=== PATIENT | male | born 1965 | race Caucasian/White ===

== ENCOUNTER 2019-05-07 20:39 | Observation (INO) ==
[2019-05-07] MEDS ORDERED: NITROGLYCERIN 2% OINTMENT 30GM TUBE EXT STA (20:51)
[2019-05-07] MEDS ORDERED: ASPIRIN CHEW 324 MG PO STA (20:51)
[2019-05-07 21:05] LABS: Basophils # (auto) 0.06 K/uL (0-0.2); Basophils % (auto) 0.6 %; Eosinophils # (auto) 0.35 K/uL (0-0.5); Eosinophils % (auto) 3.7 %; Hematocrit (blood only) 46.4 % (42-52); Hemoglobin 16.6 g/dL (14.0-18.0); Immature Granulocytes # (auto) 0.02 K/uL (0.00-0.02); Immature Granulocytes % (auto) 0.2 %; Lymphocytes # (auto) 2.59 K/uL (1.2-3.4); Lymphocytes % (auto) 27.3 %; Mean Corpuscular Hemoglobin 28.9 pg (25-34); Mean Corpuscular Hgb Conc 35.8 g/dL (32-36); Mean Corpuscular Volume 80.7 fL (80-100); Mean Platelet Volume 10.8 fL (7.4-10.4); Monocytes % (auto) 8.4 %; Neutrophils # (auto) 5.65 K/uL (1.4-6.5); Neutrophils % (auto) 59.8 %; Platelet Count 244 K/uL (130-400); RDW Coefficient of Variation 13.9 % (11.5-14.5); RDW Standard Deviation 40.5 fL (36.4-46.3); Red Blood Count 5.75 M/uL (4.7-6.1); White Blood Count 9.47 K/uL (4.8-10.8)
--- NOTE | 2019-05-07 21:06 | XRay Report ---
XR chest 1V portable HISTORY: 53 years-old Male Chest Pain acute atypical chest pain COMPARISON: CT soft tissue neck 09/02/2012 TECHNIQUE: Portable AP view of the chest FINDINGS: Cardiac mediastinal and hilar silhouettes are within normal limits. Azygos lobe and fissure. No pneum othorax, pleural effusion, focal airspace consolidation or overt pulmonary edema. Degenerative change s of the shoulders and spine. IMPRESSION: No acute process. The above report was generated using voice recognition software. It may contain grammatical, syntax o r spelling errors. Electronically signed by: Edgar Miranda M.D. 05/07/2019 9:04 PM
[2019-05-07 21:21] LABS: Alanine Aminotransferase 51 U/L (12-78); Albumin Level 3.8 gm/dl (3.4-5.0); Aspartate Aminotransferase 18 U/L (15-37); BUN Creatinine Ratio 11.8 (10-20); Blood Urea Nitrogen 13 mg/dl (7-18); Calcium 8.6 mg/dl (8.5-10.1); Carbon Dioxide 31 mmol/L (21-32); Chloride 106 mmol/L (98-107); Creatinine Clr Calc Pharmacy 93.8 ml/min; Est GFR (African American) 87.4; Est GFR (Non-African American) 75.4; Glucose 105 mg/dl (70-99); Lipase 171 U/L (73-393); Magnesium 2.2 mg/dl (1.8-2.4); Potassium 3.6 mmol/L (3.5-5.1); Sodium 141 mmol/L (136-145)
[2019-05-07 21:22] LABS: Partial Thromboplastin Time 25.9 Seconds (21.0-31.0); Prothrombin Time 10.6 Seconds (9.0-12.0)
[2019-05-07 21:26] LABS: Albumin Globulin Ratio 1.2 (0.9-2); Alkaline Phosphatase 100 U/L (45-117); Bilirubin,Total 0.6 mg/dl (0.2-1); Globulin 3.2 gm/dl (2.5-4.0); Troponin I < 0.015 ng/ml (0-0.045)
--- NOTE | 2019-05-07 22:07 | Emergency Department Note ---
Entered by Darnell Arita acting as a scribe for History of Present Illness General Chief complaint: Chest Pain Stated complaint: CHEST PAIN Time Seen by Provider: 05/07/19 20:44 Source: patient History of Present Illness Provider complaint: Chest pain Onset (ago): hour(s) 7 Location: chest Radiation: extremity (Left arm) Pain Consistency: + colicky Maximum Pain Intensity: 3 Current Pain Intensity: 5 Quality: + other (Tightness) Relieved By: + none Exacerbated By: + none Associated symptoms: no diaphoresis, no nausea/vomiting and no shortness of breath The patient is a 53 year old male who presents to the Emergency Room with compla ints of colicky chest tightness that started this afternoon around 14:00, about 7 hours ago. The patient states he was doing activities around the house when the pain started but he was active this morning, prior to the onset of his chest pain. At this time, the patient notes he felt abnormally tired and had some pain in his left arm. He also felt dizzy, but did not lose consciousness. The patient rates the pain as a 5/10 at its worst and notes nothing makes it better or worse. The patient mentioned that he does see a assignment clerk for having an elevated WBC and RBC levels but he has not scheduled his appointment to have blood removed. The patient did take his blood pressure today and it was 171/117 with a pulse of 90. The patient notes that an hour prior to arrival he took 1 baby Aspirin. The patient denies any shortness of breath, diaphoresis, or nausea as well as any history of diabetes, hyperlipidemia, or tobacco use. The patient does have a family history of CAD and CA. Home Medications Home Medications Medication Instructions Recorded Confirmed Type amlodipine 5 mg PO QAM 05/07/19 05/07/19 History aspirin 81 mg PO QAM 05/07/19 05/07/19 History multivitamin 1 tab PO QAM 05/07/19 05/07/19 History Allergies Allergy/AdvReac Type Severity Reaction Status Date / Time [id number] Allergy Unknown Unknown Uncoded 05/07/19 21:27 Past Med/Surg History Medical History Hypertension Family History Other Coronary heart disease Myocardial infarction Social History Preferred Language: Gabonese Communication Ability: Effective Animal Sitter Required: No Beliefs That Will Affect Care: None Current Living Situation: Spouse Other Information That Helps Us Care for You: No Feels Safe at Home: Yes Safety Concerns: Feels Safe At This Time Smoking Status: Never smoker Hx Alcohol Use: Yes Hx Substance Use: No Review of Systems See HPI for pertinent positives & negatives. and A total of 10 systems reviewed and were otherwise negative Physical Exam Vital Signs Vital Signs - 24 hr 05/07/19 20:40 05/07/19 20:52 05/07/19 21:04 Temperature 36.8 C Temperature Source Oral Sepsis Recent Fever Within 48 Hours No Sepsis New/Unexplained Change in Mental Status No Sepsis Action Taken by Nursing No Action Required Pulse Rate 87 79 81 Pulse Rate from SpO2 Sensor 82 Respiratory Rate 16 19 Blood Pressure 145/124 H 150/104 H Blood Pressure Mean 131 119 Pulse Oximetry 99 98 97 Oxygen Delivery Method Room Air Room Air Room Air 05/07/19 21:11 05/07/19 21:30 05/07/19 22:00 Temperature Temperature Source Sepsis Recent Fever Within 48 Hours Sepsis New/Unexplained Change in Mental Status Sepsis Action Taken by Nursing Pulse Rate 75 74 Pulse Rate from SpO2 Sensor 70 72 Respiratory Rate 25 H 20 Blood Pressure 145/101 H 138/88 Blood Pressure Mean 115 104 Pulse Oximetry 97 96 97 Oxygen Delivery Method Room Air Room Air Room Air 05/07/19 22:30 Temperature Temperature Source Sepsis Recent Fever Within 48 Hours Sepsis New/Unexplained Change in Mental Status Sepsis Action Taken by Nursing Pulse Rate 75 Pulse Rate from SpO2 Sensor 72 Respiratory Rate 24 Blood Pressure 127/96 Blood Pressure Mean 106 Pulse Oximetry 96 Oxygen Delivery Method Room Air GENERAL: Patient is in no acute distress. HEENT: No acute trauma, normocephalic atraumatic, mucous membranes moist, no nasal congestion, no scleral icterus. NECK: No stridor, no adenopathy, no meningismus, trachea is midline. LUNGS: Clear to auscultation bilaterally, no wheeze, no rhonchi, breath sounds equal. HEART: Very subtle systolic murmur. Gallop was noted. A few extra beats noted. Normal rate. ABDOMEN: Soft, nontender, bowel sounds positive, no hernias, no peritonitis. EXTREMITIES: No cyanosis or edema, full range of motion of all the joints without pain or difficulty, no signs for acute trauma. NEUROLOGIC: Oriented x 3, no acute motor or sensory deficits, no focal weakness. SKIN: No rash, no jaundice, no diaphoresis. Course 2044: Past medical records reviewed. The patient was evaluated in room C11B, and a complete history and physical examination were performed. 2134: I reevaluated the patient and he is feeling better after the Nitro. We discussed the treatment plan and he is agreeable to the plan. 2143: I [facility]'s [facility]. He will be accepting the patient for further evaluation. Consultations Consultation #1: I spoke to Dr. González gonzalez about the patient's case. He will be accepting the patient for further evaluation. Time: 21:44 Administered Medications Discontinued Medications Aspirin (Aspirin) 324 mg PO NOW STA Stop: 05/07/19 20:52 Last Admin: 05/07/19 21:07 Dose: 324 mg Documented by: [id number] Nitroglycerin (Nitro-Bid 2%) 2 inch EXT NOW STA Stop: 05/07/19 20:52 Last Admin: 05/07/19 21:08 Dose: 2 inch Documented by: [id number] Medical Decision Making Differential Diagnosis Differential Diagnosis includes: Angina, myocardial infarction, anemia, electrolyte imbalance, pneumonia, aortic dissection, pulmonary embolism, and musculoskeletal pain, amongst others. Medical Records Attestation: I reviewed the patient's medical records. Home Medications Current Medication List: was personally reviewed by me Laboratory Data Attestation: I reviewed the patient's lab results. Result diagrams: 05/07/19 20:58 05/07/19 20:58 Lab Results 05/07/19 05/07/19 05/07/19 Range/Units 20:58 20:58 20:58 WBC 9.47 (4.8-10.8) K/uL RBC 5.75 (4.7-6.1) M/uL Hgb 16.6 (14.0-18.0) g/dL Hct 46.4 (42-52) % MCV 80.7 (80-100) fL MCH 28.9 (25-34) pg MCHC 35.8 (32-36) g/dL RDW Std Deviation 40.5 (36.4-46.3) fL RDW Coeff of [place] 13.9 (11.5-14.5) % Plt Count 244 (130-400) K/uL MPV 10.8 H (7.4-10.4) fL Immature Gran % (Auto) 0.2 % Neut % (Auto) 59.8 % Lymph % (Auto) 27.3 % Upson % (Auto) 8.4 % Eos % (Auto) 3.7 % Baso % (Auto) 0.6 % Immature Gran # (Auto) 0.02 (0.00-0.02) K/uL Neut # (Auto) 5.65 (1.4-6.5) K/uL Lymph # (Auto) 2.59 (1.2-3.4) K/uL Upson # (Auto) 0.80 H (0.11-0.59) K/uL Eos # (Auto) 0.35 (0-0.5) K/uL Baso # (Auto) 0.06 (0-0.2) K/uL PT 10.6 (9.0-12.0) Seconds INR 1.0 (0.9-1.1) APTT 25.9 (21.0-31.0) Seconds PTT Ratio 1.0 Sodium 141 (136-145) mmol/L Potassium 3.6 (3.5-5.1) mmol/L Chloride 106 (98-107) mmol/L Carbon Dioxide 31 (21-32) mmol/L Anion Gap 4.0 (3-11) BUN 13 (7-18) mg/dl Creatinine 1.11 (0.6-1.4) mg/dl Est Cr Clr Drug Dosing 93.8 ml/min Est GFR ( Amer) 87.4 Est GFR (Non-Af Amer) 75.4 BUN/Creatinine Ratio 11.8 (10-20) Glucose 105 H (70-99) mg/dl Calcium 8.6 (8.5-10.1) mg/dl Magnesium 2.2 (1.8-2.4) mg/dl Total Bilirubin 0.6 (0.2-1) mg/dl AST 18 (15-37) U/L ALT 51 (12-78) U/L Alkaline Phosphatase 100 (45-117) U/L Troponin I < 0.015 (0-0.045) ng/ml Total Protein 7.0 (6.4-8.2) gm/dl Albumin 3.8 (3.4-5.0) gm/dl Globulin 3.2 (2.5-4.0) gm/dl Albumin/Globulin Ratio 1.2 (0.9-2) Lipase 171 (73-393) U/L Imaging Data Radiologist's Impression: Radiology results as stated below per my review and the radiologist's interpretation: XR chest 1V portable HISTORY: 53 years-old Male Chest Pain acute atypical chest pain COMPARISON: CT soft tissue neck 09/02/2012 TECHNIQUE: Portable AP view of the chest FINDINGS: Cardiac mediastinal and hilar silhouettes are within normal limits. Azygos lobe and fissure. No pneumothorax, pleural effusion, focal airspace consolidation or overt pulmonary edema. Degenerative changes of the shoulders and spine. IMPRESSION: No acute process. The above report was generated using voice recognition software. It may contain grammatical, syntax or spelling errors. Electronically signed by: Edgar Miranda M.D. 05/07/2019 9:04 PM ECG Data Attestation: I personally reviewed and interpreted this ECG as follows: Indication: chest pain Rate (beats per minute): 89 Rhythm: sinus rhythm Findings: + PVC and + RBBB; no ST elevation Comparison ECG Date: no prior available Blood Pressure Blood Pressure Findings: Elevated blood pressure Blood Pressure Disposition: further management by hospitalist [facility] Narrative There is no leukocytosis or concerning anemia. No coagulopathy. No significant electrolyte abnormality or kidney failure. No liver enzyme elevation. No evidence for pancreatitis. EKG showed a sinus rhythm, there was a right bundle branch block, no acute ischemia. Cardiac enzyme testing x1 was not consistent with acute cardiac injury. Chest film did not show pneumonia or mediastinal widening. The patient was given oral aspirin, he received nitroglycerin paste, 2 inches. The patient is currently resting comfortably. His symptoms have resolved with the aspirin and nitroglycerin. The patient does have some cardiac risk factors. He presents with chest pain that went to his left arm. Further cardiac work-up is warranted. I spoke to [facility] patient and case management. The on-call hospitalist was consulted. Impression & Plan Chest pain, precordial, Hypertension Discharge Plan Visit Data *Final* Discharge Date/Time: 05/07/19 23:11 Chief Complaint: Chest Pain Stated Complaint: CHEST PAIN ED Provider: Nitin Claros Discharge Problem: Chest pain, precordial, Hypertension Patient Disposition: Admitted As Inpatient Discharge Instructions Interventions: ED Discharge Assessment Last Done: 05/07/19 23:11 Discharge Problem: Hypertension Qualifiers: Hypertension type: unspecified Qualified Code(s): I10 - Essential (primary) hypertension The scribe's documentation has been prepared under my direction and personally reviewed by me in its entirety. I confirm that the note above accurately reflects all work, treatment, procedures, and medical decision making performed by me.
--- NOTE | 2019-05-07 23:19 | History and Physical Report ---
DATE OF ADMISSION: 05/07/2019 CHIEF COMPLAINT: Chest pain. HISTORY OF PRESENT ILLNESS: This is a 53-year-old male with past medical history significant for hypertension, mild diastolic dysfunction, polycythemia, bandemia, tobacco use disorder, presents with chest pain. Patient since afternoon, had noticed left-sided chest pain in the middle of the chest, pressure like feeling, radiating to his left arm, annoying and it was not getting better and his blood pressure in the evening when he checked was running high, so he came to the ER. In the ER, he was placed on aspirin and nitro paste and currently resting comfortably. The pain is gone. His EKG is unremarkable. Troponin is negative. He says he is also getting worked up for his polycythemia. He just saw co supervisor grounds and landscape last week and the blood work is not done yet. Denies any headache, no blurred vision, no runny nose, no sore throat, no difficulty swallowing. Appetite is okay. Sleeps okay. Ambulates okay. Climbs steps fine. No shortness of breath, no sweating, was nauseous earlier. No abdominal pain. Normal bowel and bladder movements. No hematochezia, no hematuria. No dysuria, no swelling in the legs. Currently resting comfortably and hemodynamically stable. ALLERGIES: No known drug allergies. PAST MEDICAL HISTORY: As mentioned above. PAST SURGICAL HISTORY: Colonoscopy, appendectomy, tonsillectomy, vasectomy. MEDICATIONS: He is on amlodipine 5 mg p.o. daily, multivitamin daily. FAMILY HISTORY: Significant for brother has high iron. Father had prostate cancer, exposed to Agent [place]. Brother has hypertension. SOCIAL HISTORY: . No smoking. Alcohol, 1-2 weeks a day. No drug use. REVIEW OF SYMPTOMS: As per HPI. Rest of review of systems negative. PHYSICAL EXAMINATION: GENERAL: The patient is of moderate built, not in acute distress. VITAL SIGNS: Temperature 36.8, pulse 74, respiratory rate 20, blood pressure 138/88, oxygen 97% on room air. HEENT: No pallor, no icterus. Pupils equal, round, and reactive to light. NECK: Supple, no neck masses, no carotid bruits. CARDIOVASCULAR: S1, S2 heard, regular rate and rhythm. No murmur, no gallop. RESPIRATORY SYSTEM: Normal AP diameter. No accessory muscle use. No wheezing, no crackles. ABDOMEN: Soft, bowel sounds present, nontender. No distention. CENTRAL NERVOUS SYSTEM: Cranial nerves II-XII grossly nonfocal. EXTREMITIES: No edema, no erythema. LABORATORY DATA: WBC 9.4, hemoglobin 16.6, hematocrit 46.4, platelets 244. PT 10.6, INR 1, APTT 25.9. Sodium 141, potassium 3.6, chloride 106, bicarbonate 31, BUN 13, creatinine 1.1, serum glucose 105, calcium 8.62, magnesium 2.2, total bilirubin 0.6, AST 18, ALT 51, alkaline phosphatase 100. Troponin I less than 0.015. Lipase 171. Chest x-ray: No acute process. EKG: Sinus rhythm with PVCs at a rate 89 , Right bundle branch block, left anterior fascicular block, seems similar to the EKG reading in [facility]. ASSESSMENT AND PLAN: This is a 53-year-old male who presents with chest pain. 1. Chest pain, rule out acute coronary syndrome. Initial workup is negative. We will observe in tele floor. Serial cardiac enzymes, echocardiogram, n.p.o. after midnight. Cardiology consult. We will place him on aspirin. Follow the fasting lipid profile. 2. History of hypertension. Continue amlodipine. We will monitor the blood pressure. 3. Deep venous thrombosis prophylaxis, sequential compression devices for now. DISPOSITION: Observation in tele floor. Expect discharge home and follow with family doctor. Level 1 full code. MTDD
[2019-05-07] MEDS ORDERED: ONDANSETRON INJ 2 MG/ML 2 ML VIAL IV PRN (23:25)
[2019-05-07] MEDS ORDERED: ACETAMINOPHEN 325 MG TAB PO PRN (23:25)
[2019-05-07] MEDS ORDERED: NITROGLYCERIN SL 0.4 MG/TAB TAB SL PRN (23:25)
[2019-05-08 06:17] LABS: Basophils # (auto) 0.03 K/uL (0-0.2); Basophils % (auto) 0.4 %; Eosinophils # (auto) 0.41 K/uL (0-0.5); Eosinophils % (auto) 6.1 %; Hemoglobin 15.2 g/dL (14.0-18.0); Immature Granulocytes # (auto) 0.02 K/uL (0.00-0.02); Immature Granulocytes % (auto) 0.3 %; Lymphocytes # (auto) 1.81 K/uL (1.2-3.4); Lymphocytes % (auto) 26.8 %; Mean Corpuscular Hgb Conc 34.5 g/dL (32-36); Mean Platelet Volume 10.8 fL (7.4-10.4); Monocytes # (auto) 0.62 K/uL (0.11-0.59); Monocytes % (auto) 9.2 %; Neutrophils # (auto) 3.87 K/uL (1.4-6.5); Neutrophils % (auto) 57.2 %; Platelet Count 220 K/uL (130-400); RDW Standard Deviation 40.9 fL (36.4-46.3); Red Blood Count 5.43 M/uL (4.7-6.1); White Blood Count 6.76 K/uL (4.8-10.8)
[2019-05-08 06:49] LABS: Calcium 8.7 mg/dl (8.5-10.1); Est GFR (African American) 91.4; Est GFR (Non-African American) 78.8; Magnesium 2.3 mg/dl (1.8-2.4); Potassium 3.6 mmol/L (3.5-5.1)
[2019-05-08] MEDS ORDERED: PERFLUTREN LIPID MICROSPHERE (DEFINITY) IV ONE (08:49)
[2019-05-08] MEDS ORDERED: ASPIRIN 81 MG ECTAB PO SCH (09:00)
--- NOTE | 2019-05-08 10:28 | Hospitalist Progress Note ---
Date of Service May 08, 2019 Assessment & Plan (1) Chest pain, precordial: (2) Hypertension: BP under better control, Feels a little better, concerning story for CAD, Cards to see, Trops are negative, DC later today if Cards w/u complete ROS-No Headache, No Visual Changes, No Nausea, No Vomiting, No Fever, No Chills, No Neck Pain or Stiffness, + Chest Pain Rad down LUE, No Palpitations, No SOB, No COLEMAN, No Cough, No Sputum, No Wheezing, No Abdominal Pain, No Diarrhea, No Hematemesis, No Hemoptysis, No Unexpected Weight Loss, No Flank pain, No Melena, No Hematochezia, No Frequency, No Urgency, No Burning, No Hematuria, No Rashes, No Diaphoresis. Appetite is Normal Physical Exam Gen-AAO x 3, NAD, Afebrile Head-NCAT, EOMI, PERRLA, Anicteric Sclera, No Posterior Pharyngeal Erythema Neck-Supple, No JVD, No Thyromegaly, No Masses, No LAD, No Bruits Lungs-Clear to Auscultation Bilaterally, No Rales, No Rhonchi, No Wheezing, No Crepitus Chest-No S4, +S1, +S2, No S3, No Murmurs, No Rubs, No Gallops, No Ectopy Abdomen-Soft, Bowel Sounds Present, Non Tender, Non Distended, No Hepatomegaly, No Splenomegaly, No Palpable Masses, No Rebound, No Rigidity, No Guarding Musculoskeletal-Full Range of Motion Bilaterally, No CVAT Extremities-No Cyanosis, No Clubbing, No Edema Nuero-Cranial Nerves II-XII grossly intact, Motor WNL, DTRs WNL, Strength WNL, Non Focal Psych-Normal Mood Results & Data Vital Signs (Past 12 Hours) Vital Signs Temp Pulse Pulse Resp BP BP Pulse Ox 05/08/19 08:04 53 L 05/08/19 07:47 36.5 C 61 18 121/77 96 05/08/19 03:59 36.4 C L 58 L 16 120/73 98 05/07/19 23:25 05/07/19 23:20 36.7 C 66 20 166/91 H 96 05/07/19 23:00 72 24 126/85 96 05/07/19 22:30 75 24 127/96 96 Pulse Ox 05/08/19 08:04 05/08/19 07:47 05/08/19 03:59 05/07/19 23:25 99 05/07/19 23:20 05/07/19 23:00 05/07/19 22:30 Allergies [id number] Allergy (Unknown, Uncoded 05/07/19 21:27) Unknown Height/Weight/Isolation Height 5 ft 10 in Weight 105.2 kg Chemistry 05/07/19 05/08/19 20:58 05:36 Sodium 141 142 Potassium 3.6 3.6 Chloride 106 107 Carbon Dioxide 31 31 Anion Gap 4.0 4.0 BUN 13 15 Creatinine 1.11 1.07 Glucose 105 H 107 H (1) Hypertension Hypertension type: unspecified Qualified Code(s): I10 - Essential (primary) hypertension
--- NOTE | 2019-05-08 12:28 | Post Operative Brief Note ---
Cardiology Brief Post Op Date of Surgery May 08, 2019 stress test was nonischemic with hypertensive bp response to exercise ok to d/c to home increase amlodipine to 10mg daily and start valsartan 80mg daily will need bmp and nurse only bp check in 1 week f/u with pcp for further management Procedure stress test was nonischemic with hypertensive bp response to exercise ok to d/c to home increase amlodipine to 10mg daily and start valsartan 80mg daily will need bmp and nurse only bp check in 1 week f/u with pcp for further management Portable Pinch Riveter Denzel Dean, DO Psychiatric Social Worker Supervisor none Estimated Blood Loss 0 Findings Consistent with Post-Op Diagnosis
[2019-05-08] MEDS ORDERED: AMLODIPINE BESYLATE 5 MG TAB PO ONE (12:30)
--- NOTE | 2019-05-08 12:47 | History and Physical Report ---
DATE OF ADMISSION: 05/08/2019 INPATIENT CARDIOLOGY CONSULTATION CONSULTATION REQUESTED BY: Dr. Claudio. REASON FOR CONSULTATION: Chest pain. HISTORY OF PRESENT ILLNESS: Mr. An is a very pleasant 53-year-old gentleman who has not been seen by [facility] in the past. He presented to [facility] on 05/07/2019 with complaints of chest discomfort. He states that on that day he was in his normal state of health, tinkering around his property, not do anything strenuous, when he suddenly developed chest pressure. He describes a pressure sensation that started substernally and then radiated across his left precordium up into his left shoulder and somewhat down his left arm. This was very concerning to him and he took his blood pressure at that time and does not remember the initial reading; however, the discomfort persisted for several hours and he notes his blood pressure when checked at home could be upwards of the 170s over 120s. After 5 or 6 hours, he became concerned and came into the Emergency Department. Upon arrival, he was found to be somewhat hypertensive. EKG was unremarkable as were troponins. He was given sublingual nitroglycerin which eventually seemed to ease his discomfort. He was admitted to telemetry. He had no further discomfort overnight and his blood pressure has varied overnight. Otherwise, he states that he was previously on lisinopril for blood pressure, but he did not like it, thinking that it might have caused some different type of chest discomfort and he has recently been switched to amlodipine. He states he has been taking his amlodipine on a regular basis. PAST SURGICAL HISTORY: 1. Appendectomy. 2. Vasectomy. 3. Tonsil and adenoidectomy. 4. Colonoscopy. MEDICAL ILLNESSES: 1. Hypertension. 2. Recently diagnosed polycythemia and bandemia. FAMILY HISTORY: Denies any premature coronary artery disease in first-degree relatives. SOCIAL HISTORY: The patient is a lifelong smokeless tobacco user. Denies cigarette use. Drinks 1-4 alcoholic drinks a day. Denies any recreational drug use. He is and lives at home with his . He has 1 son who has grown and in good health. He is employed in [employer]. REVIEW OF SYSTEMS: As per HPI, all other review of systems are reviewed and negative at this time. ALLERGIES: No known drug allergies. MEDICATIONS AN OUTPATIENT: 1. Amlodipine 5 mg daily. 2. Multivitamin. PHYSICAL EXAMINATION: VITAL SIGNS: Temperature 36.5, pulse 53, respiratory rate 12, blood pressure 121/77. GENERAL: Awake, alert, oriented x3 in no acute distress. HEENT: Normocephalic, atraumatic. Pupils equal, round, reactive to light and accommodation. Extraocular muscles intact. Anicteric sclerae. Moist mucous membranes. NECK: No JVD, no bruit. CARDIOVASCULAR: Regular. Positive S4. Normal S1 and S2. No S3. No murmurs or rubs. PULMONARY: Clear to auscultation bilaterally. No rales, rhonchi, or wheezing. ABDOMEN: Bowel sounds x4, soft. No rebound, guarding, tenderness. No organomegaly. EXTREMITIES: No clubbing, cyanosis or edema, +2 pedal pulses bilaterally. SKIN: Warm and dry. TEST RESULTS: A 12-lead EKG performed in the Emergency Department independently reviewed at this time shows normal sinus rhythm at 89 beats per minute, right bundle branch block, left anterior fascicular block. No significant change compared to previous study of September 2018. Troponin negative x3. LDL is 85, total cholesterol 145, HDL 46, triglycerides 69. Exercise stress echocardiogram was nonischemic, no arrhythmias. Hypertensive blood pressure response to exercise. Average exercise tolerance. IMPRESSION: 1. Chest pain, likely secondary to hypertensive urgency. 2. Nonischemic exercise stress echocardiogram. 3. Well-controlled cholesterol. RECOMMENDATIONS: It was my pleasure to see Mr. An in consultation today. The patient was counseled that his stress test was nonischemic; however, was very hypertensive with a peak systolic blood pressure of 220. So I do believe his chest pain is secondary to hypertensive urgency. To that end, I would increase his amlodipine from 5 to 10 mg daily and start him on valsartan 80 mg daily. He is then to have a BMP arranged in 1 week in the [place] office as well as a nurse only blood pressure check. He is then to follow up with his primary care physician for further blood pressure control. No cardiac followup is necessary at this time. It is okay to discharge the patient to home.
[2019-05-08] MEDS ORDERED: VALSARTAN 80 MG TAB PO SCH (13:00)
--- NOTE | 2019-05-08 13:23 | Discharge Summary ---
Date of Service May 08, 2019 Admission HPI Per Admitting Provider This is a 53-year-old male with past medical history significant for hypertension, mild diastolic dysfunction, polycythemia, bandemia, tobacco use disorder, presents with chest pain. Patient since afternoon, had noticed left-sided chest pain in the middle of the chest, pressure like feeling, radiating to his left arm, annoying and it was not getting better and his blood pressure in the evening when he checked was running high, so he came to the ER. In the ER, he was placed on aspirin and nitro paste and currently resting comfortably. The pain is gone. His EKG is unremarkable. Troponin is negative. He says he is also getting worked up for his polycythemia. He just saw alloy weigher last week and the blood work is not done yet. Denies any headache, no blurred vision, no runny nose, no sore throat, no difficulty swallowing. Appetite is okay. Sleeps okay. Ambulates okay. Climbs steps fine. No shortness of breath, no sweating, was nauseous earlier. No abdominal pain. Normal bowel and bladder movements. No hematochezia, no hematuria. No dysuria, no swelling in the legs. Currently resting comfortably and hemodynamically stable. Admission Exam Per Admitting Provider PHYSICAL EXAMINATION: GENERAL: The patient is of moderate built, not in acute distress. VITAL SIGNS: Temperature 36.8, pulse 74, respiratory rate 20, blood pressure 138/88, oxygen 97% on room air. HEENT: No pallor, no icterus. Pupils equal, round, and reactive to light. NECK: Supple, no neck masses, no carotid bruits. CARDIOVASCULAR: S1, S2 heard, regular rate and rhythm. No murmur, no gallop. RESPIRATORY SYSTEM: Normal AP diameter. No accessory muscle use. No wheezing, no crackles. ABDOMEN: Soft, bowel sounds present, nontender. No distention. CENTRAL NERVOUS SYSTEM: Cranial nerves II-XII grossly nonfocal. EXTREMITIES: No edema, no erythema. Principal Diagnosis Chest Pain Accel HTN Discharge Exam Physical Exam Gen-AAO x 3, NAD, Afebrile Head-NCAT, EOMI, PERRLA, Anicteric Sclera, No Posterior Pharyngeal Erythema Neck-Supple, No JVD, No Thyromegaly, No Masses, No LAD, No Bruits Lungs-Clear to Auscultation Bilaterally, No Rales, No Rhonchi, No Wheezing, No Crepitus Chest-No S4, +S1, +S2, No S3, No Murmurs, No Rubs, No Gallops, No Ectopy Abdomen-Soft, Bowel Sounds Present, Non Tender, Non Distended, No Hepatomegaly, No Splenomegaly, No Palpable Masses, No Rebound, No Rigidity, No Guarding Musculoskeletal-Full Range of Motion Bilaterally, No CVAT Extremities-No Cyanosis, No Clubbing, No Edema Nuero-Cranial Nerves II-XII grossly intact, Motor WNL, DTRs WNL, Strength WNL, Non Focal Psych-Normal Mood Discharge Data Allergies Allergy/AdvReac Type Severity Reaction Status Date / Time [id number] Allergy Unknown Unknown Uncoded 05/07/19 21:27 Consultations 05/07/19 21:39 ED Decision to Admit Stat 05/08/19 08:00 Consult Cardiology Routine Current Diagnoses Essential (primary) hypertension (05/07/19) Precordial pain (05/07/19) Allergies [id number] Allergy (Unknown, Uncoded 05/07/19 21:27) Unknown Height/Weight/Isolation Height 5 ft 10 in Weight 105.2 kg Chemistry 05/07/19 05/08/19 20:58 05:36 Sodium 141 142 Potassium 3.6 3.6 Chloride 106 107 Carbon Dioxide 31 31 Anion Gap 4.0 4.0 BUN 13 15 Creatinine 1.11 1.07 Glucose 105 H 107 H Hospital Course (1) Chest pain, precordial: (2) Hypertension: BP under better control, Feels a little better, Exercise Stress Echo done, Cards eval done, Trops are negative, DC now Norvasc 10 and Valsartan 80, BMP and BP check in 6 days Total Time Total Time Spent Total Time Spent (In Minutes): 45 mins Total Time Includes: Examination of the Patient, Discharge Planning, Medication Reconciliation and Communication With Other Providers Discharge Plan Discharge Items Patient Disposition: Home - Self-Care Reason For Visit: CHEST PAIN Discharge Diagnosis: Chest Pain Accel HTN Discharge Goals: Improve disease control Activity: Resume your previous activity Lifting: Gradually increase as tolerated Bathing: No limitations Sexual Activity: When tolerated Exercise/Sports: Gradually increase as tolerated Driving/Machine Use: No limitations Weightbearing: Full weightbearing Non-emergency contact: Primary Care Provider and Communications Executive Call non-emergency contact if: you have any medication questions and your symptoms worsen Follow-up/Referrals: Suki Bowers MD [Primary Care Provider] - Denzel Dean DO [Physician] - (3-5 weeks) Diet: Heart Healthy Addtl Provider Instructions: BMP on Sunday 05/13 and RN BP check at [facility] or PCP office Prescriptions: New amlodipine [Norvasc] 5 mg Tablet 10 mg PO QAM Qty: 30 RF: 0 nitroglycerin [Nitrostat] 0.4 mg Tablet, Sublingual 0.4 mg sublingual UD PRN (Reason: chest pain) Qty: 30 RF: 0 valsartan [Diovan] 80 mg Tablet 80 mg PO QAM Qty: 30 RF: 0 Continued multivitamin Tablet 1 tab PO QAM RF: 0 aspirin 81 mg Tablet,Delayed Release (Dr/Ec) 81 mg PO QAM RF: 0 Discontinued amlodipine 5 mg tablet 5 mg PO QAM RF: 0 Stand-Alone Forms: Call Back Authorization, [facility] Discharge Orders: Discharge Order (Routine); Ordered 05/08/19 Ordered By: Mil Rendon Admission Data Admit Date/Time: 05/07/19 22:48 Attending Provider: Mil Rendon Admit Provider: Shawn Claudio Primary Care Provider: Suki Bowers Other Providers: Shawn Claudio ; Denzel Dean Service: Telemetry
[2019-05-09] MEDS ORDERED: AMLODIPINE BESYLATE 5 MG TAB PO SCH (09:00)
== END 2019-05-08 13:56 | disposition home or self-care (01) ==
LOC: ED 20:39 → 2S 20:39